=== PATIENT | male | born 1985 | race African-American/Black ===

== ENCOUNTER 2018-05-24 16:39 | Emergency (ER) | payer OTHER, SELFPAY ==
[2018-05-24] MEDS ORDERED: Oxymetazoline HCl 0.05% ( 15 ML ) ONE (17:37)
--- NOTE | 2018-05-24 17:49 | CT ---
CT FACIAL BONES: 05/24/18 Multiple axial tomograms obtained through the facial bones with multiplanar reconstruction. INDICATION: Swelling of the left orbit. Altercation earlier today. FINDINGS: There is slight irregularity at the base of the left nasal bone which could represent a subtle fractu re. Orbits appear intact. There is air density in the orbit especially along the medial wall of the left orbit. Air density is seen within the eyelid on the left and in the subcutaneous tissues over the lef t orbit. There is submucosal edema in the ethmoid air cells. The lamina papyracea appears intact alth ough I cannot exclude subtle disruption given the presence of gas in the left orbit. The maxillary si nuses show mild mucosal edema, more prominent on the right with evidence of an air fluid level in the right maxillary antrum. The zygoma appear intact. Maxilla appears intact. Mandible appears intact. IMPRESSION: There is air in the left orbit most pronounced along the medial wall of the left orbit. There is air in the subcutaneous tissues of the orbit and in the eyelid. A lamina papyracea fracture is not defini tely confirmed although subtle disruption cannot be excluded given the presence of gas in the left or bit. There is mucosal edema in the maxillary sinuses with a small air fluid level in the right maxill ivanna antrum. Evidence of fracture involving the base of the left nasal bone, age indeterminate. POS: [facility]
== END 2018-05-24 17:46 ==
LOC: SCSER 16:39
DX: H05.89 Other disorders of orbit (principal); R09.81 Nasal congestion; I10 Essential (primary) hypertension; J45.909 Unspecified asthma, uncomplicated; F32.9 Major depressive disorder, single episode, unspecified; F17.210 Nicotine dependence, cigarettes, uncomplicated
CPT/HCPCS: 70486